=== PATIENT | female | born 1935 | race Asian ===

== ENCOUNTER → 2017-04-24 | Outpatient (CLI) | payer MEDICARE, OTHER ==
[~2017-04-24] MED LIST: ALLO300 PO; AMLO-511 PO; ASPI-1093 PO; ATOR20TA86 PO; BISO1TAB7 PO; FAMO20 PO; GABA-529 PO; LEVE250T55 PO; MECL-111 PO; METF500T7 PO; MULT1CAP42 PO; OS500 PO; PREG50 PO; SITA100 PO; TRAM50TA4 PO
== END | disposition home or self-care (01) ==
LOC: RADPV 09:13
PROVIDERS: ATTEND Internal Medicine Nephrology
DX: N18.4 Chronic kidney disease, stage 4 (severe) (principal); N27.1 Small kidney, bilateral
CPT/HCPCS: 76770

== ENCOUNTER → 2018-10-15 | Outpatient (CLI) | payer MEDICARE, OTHER ==
[~2018-10-15] MED LIST changes: -ASPI-1093 PO; +ASPI-1182 PO
== END | disposition home or self-care (01) ==
LOC: RADMN 09:25
PROVIDERS: ATTEND Internal Medicine
DX: I67.82 Cerebral ischemia (principal); R90.82 White matter disease, unspecified; R56.9 Unspecified convulsions
CPT/HCPCS: 70551